=== PATIENT | female | born 1985 | race Caucasian/White ===

== ENCOUNTER 2019-10-08 06:33 | Inpatient (IN) | payer OTHER ==
[~2019-10-08 06:33] MED LIST: cefOXitin 2 GM Vial ONE
[2019-10-08] MEDS ORDERED: Scopolamine 1.5 MG Transdermal Patch TOP SCH (08:00)
[2019-10-08] MEDS ORDERED: Gabapentin 300 MG Cap PO ONE (08:00)
[2019-10-08] MEDS ORDERED: Celecoxib 200 MG Cap PO ONE (08:00)
[2019-10-08] MEDS ORDERED: Acetaminophen 500 MG Tab PO ONE (08:00)
[2019-10-08] MEDS ORDERED: Dextrose 5%-Lactated Ringers 1,000 ML IV SCH (08:15)
[2019-10-08] MEDS ORDERED: Glycopyrrolate 0.2 MG/ML 5 ML MDV ONE (08:26)
[2019-10-08] MEDS ORDERED: Ondansetron 4 MG/2 ML SDV ONE (08:26)
[2019-10-08] MEDS ORDERED: fentaNYL 250 MCG/5 ML SDV ONE ×3 (08:26→10:00)
[2019-10-08] MEDS ORDERED: Dexamethasone 4 MG/ML SDV ONE (08:26)
[2019-10-08] MEDS ORDERED: Propofol 200 MG/20 ML SDV ONE (08:26)
[2019-10-08] MEDS ORDERED: Rocuronium 50 MG/5 ML Vial ONE (08:26)
[2019-10-08] MEDS ORDERED: Neostigmine Methylsulfate 1 MG/ML 5 ML Syringe ONE (08:26)
[2019-10-08] MEDS ORDERED: Succinylcholine 200 MG/10 ML MDV ONE (08:26)
[2019-10-08] MEDS ORDERED: Lactated Ringers 1,000 ML ONE (08:26)
[2019-10-08] MEDS ORDERED: Ketamine 500 MG/5 ML MDV IV SCH (09:00)
[2019-10-08] MEDS ORDERED: Ketamine 50 MG in Sodium Chloride 0.9% 49.5 ML IV SCH (09:00)
[2019-10-08] MEDS ORDERED: cefOXitin 2 GM in Sodium Chloride 0.9% 50 ML IV ONE (09:15)
[2019-10-08] MEDS ORDERED: hydrOXYzine HCL 100 MG/2 ML SDV IM ONE (12:23)
[2019-10-08] MEDS ORDERED: fentaNYL 100 MCG/2 ML SDV IVPUSH ONE (12:31)
[2019-10-08] MEDS ORDERED: Metoclopramide 10 MG/2 ML SDV IV PRN ×2 (13:33→13:43)
[2019-10-08] MEDS ORDERED: Labetalol 20 MG/4 ML Syringe IVPUSH PRN (13:46)
[2019-10-08] MEDS ORDERED: Acetaminophen 500 MG Tab PO PRN (13:46)
[2019-10-08] MEDS ORDERED: Cyclobenzaprine 10 MG Tab PO PRN (13:46)
[2019-10-08] MEDS ORDERED: hydrOXYzine HCL 100 MG/2 ML SDV IM PRN (13:46)
[2019-10-08] MEDS ORDERED: Albuterol/Ipratropium 3.0-0.5 MG/3 ML Neb Soln INH PRN (13:46)
[2019-10-08] MEDS ORDERED: Ondansetron 4 MG/2 ML SDV IVPUSH PRN (13:46)
[2019-10-08] MEDS ORDERED: Calcium Gluconate 10% 1 GM/10 ML SDV IVPUSH PRN (13:46)
[2019-10-08] MEDS ORDERED: Metoclopramide 10 MG/2 ML SDV IVPUSH PRN (13:46)
[2019-10-08] MEDS ORDERED: HYDROmorphone 0.5 MG/0.5 ML Syringe IVPUSH PRN (13:46)
[2019-10-08] MEDS ORDERED: oxyCODONE 5 MG Tab PO PRN (13:46)
[2019-10-08] MEDS ORDERED: HYDROmorphone 1 MG/ML Syringe IV PRN (13:46)
[2019-10-08] MEDS ORDERED: diphenhydrAMINE 50 MG/ML SDV IVPUSH PRN (13:46)
[2019-10-08] MEDS ORDERED: Pantoprazole 40 MG Vial IVPUSH SCH (15:00)
[2019-10-08] MEDS: cefOXitin 2 GM in Sodium Chloride 0.9% 50 ML IV SCH ×2 (15:46→20:07)
[2019-10-08] MEDS: Gabapentin 250 MG/5 ML Solution ML 470 ML Bottle PO SCH ×2 (15:56→20:06)
[2019-10-08] MEDS: Acetaminophen 500 MG Tab PO SCH ×2 (15:57→21:00)
[2019-10-08] MEDS ORDERED: MVI, Adult with Vitamin K 10 ML, Thiamine 200 MG, Chromium/Copper/Mang/Selen/Zn 1 ML in... IV SCH ×4 (16:00)
[2019-10-08] MEDS: Heparin Sodium 5,000 Units/ML Vial SUBCUT SCH (20:06)
[2019-10-08] MEDS ORDERED: Montelukast 5 MG Tab.Chew PO SCH (21:00)
[2019-10-08] MEDS: Dextrose 5%-Lactated Ringers 1,000 ML IV SCH (23:36)
[2019-10-09] MEDS ORDERED: Iopamidol 612 MG/ML 50 ML SDV PO STA (01:12)
[2019-10-09] MEDS: diphenhydrAMINE 50 MG/ML SDV IV ONE ×2 (02:39→03:09)
[2019-10-09] MEDS: methylPREDNISolone Sodium Succinate 125 MG/2 ML SDV IV ONE ×2 (02:40→03:09)
[2019-10-09] MEDS: cefOXitin 2 GM in Sodium Chloride 0.9% 50 ML IV SCH (02:41)
[2019-10-09] MEDS: Dextrose 5%-Lactated Ringers 1,000 ML IV SCH (05:54)
[2019-10-09] MEDS: Acetaminophen 500 MG Tab PO SCH ×3 (05:54→21:08)
[2019-10-09] MEDS ORDERED: Ondansetron 4 MG Tab.DIS PO PRN (06:51)
[2019-10-09] MEDS ORDERED: Dextrose 5%-Lactated Ringers 1,000 ML IV SCH (07:00)
--- NOTE | 2019-10-09 07:42 | PN ---
DATE OF SERVICE: 10/09/2019 SUBJECTIVE: Natalie is postoperative day 1 and her vital signs stable. Temperature max 99.3. Oral intake 1060, urine output was 3080. TISHA put out 95 of a light pink drainage. Tolerating Step One diet well, bariatric and gastric bypass diet well. Upper GI was normal. REMAINDER OF REVIEW OF SYSTEMS: Negative for any pertinent positives or negatives. Reports pain is controlled. OBJECTIVE: GENERAL: Natalie is a pleasant 34-year-old female, alert and orientated. VITAL SIGNS: TPR at 0325; 98.3, 93, 16. Blood pressure 136/78, O2 by pulse oximetry 98% on 2 L of O2 per nasal cannula. HEENT: Negative. NECK: Supple. HEART: Regular rate and rhythm. LUNGS: Clear. ABDOMEN: Dressings dry and intact. Abdominal binder is on. EXTREMITIES: Without peripheral edema. ASSESSMENT: Laparoscopic duodenal switch, repair of paraesophageal diaphragmatic hernia with mesh and liver biopsy for morbid obesity, large paraesophageal diaphragmatic hernia, and hepatomegaly. Date of surgery, 10/08/2019. PLAN: 1. Decrease IV to 80 mL per hour. 2. Step 2 gastric bypass diet with no cereal. 3. Dressing off, may shower. 4. Communication order: 3 med cups per hour, 1 every 20 minutes, record at bedside. Home medications started; 1. Sertraline 150 mg p.o. daily. 2. Singulair 10 mg p.o. at bedtime. 3. Flonase 2 sprays in each nostril once daily. 4. Klonopin 0.5 mg p.o. daily. 5. Zofran ODT 4 mg every 4 hours p.r.n. nausea, vomiting. 6. Abilify 2 mg p.o. daily. We will evaluate p.r.n. an or in a.. Tisha Banks PA-C /[id number]
[2019-10-09] MEDS: Gabapentin 250 MG/5 ML Solution ML 470 ML Bottle PO SCH ×3 (08:32→20:19)
[2019-10-09] MEDS: Sertraline 50 MG Tab PO SCH (08:32)
[2019-10-09] MEDS: Heparin Sodium 5,000 Units/ML Vial SUBCUT SCH ×2 (08:33→20:18)
[2019-10-09] MEDS: SCOPOLAMINE PATCH CHECK TOP SCH (08:33)
[2019-10-09] MEDS: Celecoxib 200 MG Cap PO SCH ×2 (08:33→20:19)
[2019-10-09] MEDS: ClonazePAM 0.5 MG Tab PO SCH (08:38)
[2019-10-09] MEDS: Fluticasone Propionate Nasal Spray 16 GM Bottle NASBOTH SCH (08:38)
[2019-10-09] MEDS ORDERED: Sertraline 50 MG Tab PO SCH (09:00)
[2019-10-09] MEDS ORDERED: ClonazePAM 0.5 MG Tab PO SCH (09:00)
--- NOTE | 2019-10-09 10:34 | CR ---
[facility] HISTORY: Postbariatric surgery FINDINGS: Patient swallowed water-soluble contrast. Upright views of the abdomen show no evidence of extravasation or obstruction. IMPRESSION: Status post bariatric surgery No extravasation or obstruction seen
[2019-10-09] MEDS ORDERED: Montelukast 10 MG Tab PO SCH (21:00)
[2019-10-10] MEDS: Acetaminophen 500 MG Tab PO SCH (05:46)
[2019-10-10] MEDS: Celecoxib 200 MG Cap PO SCH (08:12)
[2019-10-10] MEDS: Sertraline 50 MG Tab PO SCH (08:16)
[2019-10-10] MEDS: ClonazePAM 0.5 MG Tab PO SCH (08:18)
[2019-10-10] MEDS: Gabapentin 250 MG/5 ML Solution ML 470 ML Bottle PO SCH (08:18)
[2019-10-10] MEDS: Heparin Sodium 5,000 Units/ML Vial SUBCUT SCH (08:21)
[2019-10-10] MEDS: Fluticasone Propionate Nasal Spray 16 GM Bottle NASBOTH SCH (08:22)
[2019-10-10] MEDS: SCOPOLAMINE PATCH CHECK TOP SCH (08:23)
[2019-10-10] MEDS ORDERED: Cyanocobalamin (Vitamin B12) 1,000 MCG/ML SDV IM ONE (09:00)
--- NOTE | 2019-10-10 10:01 | DISCH ---
ADMISSION DIAGNOSES: Morbid obesity, BMI 52.3; acid reflux; polycystic ovary syndrome; allergic rhinitis; mood disorder. DISCHARGE DIAGNOSES: Laparoscopic duodenal switch, repair of paraesophageal diaphragmatic hernia with mesh, and liver biopsy for morbid obesity, large paraesophageal diaphragmatic hernia, and hepatomegaly. Date of surgery: 10/08/2019. HISTORY: Natalie is a pleasant 34-year-old female with longstanding history of morbid obesity and increasing comorbidities. After preoperative evaluation and discussion of possible risks and possible complications, she wished to proceed with surgical procedure. HOSPITAL COURSE: Natalie had her surgery on 10/08/2019. She had no operative complications. On postoperative day #1, she was started on step 2 gastric bypass diet with no cereal. IV was decreased. She was started on her home medication. On postoperative day #2, she was able to be discharged to home. Vital signs stable. Oral intake 2880. Urine output 1450. TISHA drain was discontinued. She had 35 mL of a light pink drainage over the past 24 hours. She did receive dietary instruction and vitamin B12 1000 mcg injection. Natalie was able to be discharged to home with no complications. PHYSICAL EXAMINATION: GENERAL: Naatlie is a 34-year-old female. VITAL SIGNS: Height is 5 feet 9 inches, weight is 354 pounds, BMI is 52.3. TPR at 0729, 97.4; 69; 16; blood pressure 135/76. HEENT: Negative. NECK: Supple. HEART: Regular rate and rhythm. LUNGS: Clear. ABDOMEN: Sutures intact. Incision is healing well. 4x4s will be placed over TISHA drain, once that is removed. Abdominal binder has been on. DISPOSITION: Discharged to home. CONDITION: Stable and improving. FOLLOWUP: Appointment with Tisha Banks PA-C, on 10/21/2019 at 9:00 a.m. HOME MEDICATIONS: 1. Tylenol Extra Strength 1000 mg every 8 hours. 2. Celebrex 200 mg b.i.d. #28. 3. Zofran ODT 4 mg every 4 hours p.r.n. nausea #30. 4. She is to resume home medication of: a. Clonazepam 0.5 mg daily. b. Flonase 2 sprays inhalation in each nostril daily. c. Singulair 10 mg oral at bedtime. d. Protonix 40 mg oral daily. e. Sertraline 150 mg oral daily. f. She is to stop taking vitamins and supplements until first postop appointment. DIET: Step 2 gastric bypass diet with no cereal for 1 month until 11/07/2019. ACTIVITY AFTER DISCHARGE: No lifting greater than 10 pounds for 2 weeks. Other activity after discharge: Walk at least 6 times daily inside your house. Driving: Do not drive for 1 week. Shower/bathing: May shower. DISCHARGE INSTRUCTIONS: Notify provider if any fever, increased pain, swelling, redness, drainage, nausea, or vomiting. Wound incision care: Keep site clean and dry. Wear abdominal binder for 2 weeks and then as tolerated. SPECIAL INSTRUCTIONS: Use incentive spirometer 10 times every hour while awake for 1 week.
--- NOTE | 2019-10-14 12:13 | OR ---
DATE OF PROCEDURE: 10/08/2019 SURGEON: Nicholas Pastrana MD PREOPERATIVE DIAGNOSIS: Morbid obesity. POSTOPERATIVE DIAGNOSES: 1. Morbid obesity. 2. Marked hepatomegaly. 3. Large paraesophageal diaphragmatic hernia. OPERATIVE PROCEDURES: Diagnostic laparoscopy with: 1. Laparoscopic duodenal switch (37257). 2. Milton-Cut needle liver biopsy (09744). 3. Repair of paraesophageal diaphragmatic hernia with mesh augmentation (66853). ANESTHESIA: General. TOP STOP ATTACHER: Tisha Banks PA-C INDICATIONS FOR PROCEDURE: This is a 34-year-old presenting with longstanding morbid obesity and increasingly significant comorbidities. After preoperative evaluation and discussion, she wished to proceed with a duodenal switch. Potential risks of the procedure including bleeding, infection, leaks from various GI tract closures, problems with obstruction recurring over time of the GI tract, as well as remote possibility of cardiopulmonary, septic, or hemorrhagic complications leading to were discussed, and the patient wishes to proceed. DETAILS OF PROCEDURE: The patient was taken to the operating room and placed in a supine position. After general endotracheal anesthesia was induced, she was converted to a lithotomy position and the abdomen prepped and draped. At 15 cm inferior and 5 cm left of the xiphoid process, a transverse incision was made and the peritoneal cavity entered under direct vision with an Optiview trocar, inflated to 15 mmHg pressure with CO2. Laparoscope was then reinserted. No underlying trocar insertion site injuries were seen. Following this, bilateral transversus abdominis plane blocks were placed and 5 additional trocars were placed across the upper and mid abdomen. The patient was noted to have marked hepatomegaly with the liver being roughly 2 to 3 times normal size and grossly fatty infiltrated. Milton- Cut needle biopsies were obtained and sent for histologic evaluation and hemostasis at the biopsy site was accomplished with electrocautery. At this point, the ileocecal valve was identified and the small bowel was then traced back 300 cm proximal to that point. This was then mobilized upward to the level of the duodenum. This was fairly tight, but we felt we would be able to do the duodenoileostomy safely but, due to the density of the mesentery, will forego the second of the small bowel anastomosis, leaving that to future procedure after some weight loss has occurred, if necessary. At this point, attention was turned to formation of the sleeve gastrectomy. On elevation of the liver, the patient was noted to have a quite large paraesophageal diaphragmatic hernia with prolapse of perigastric fat and gastric fundus in the plane anterior to the course of the esophagus. This area was initially reduced, and the peritoneum anterior to the EG junction and then between the esophagus and the crura on each side was divided and the esophagus dissected away from the crura on each side and a retroesophageal window completed. The remaining attachments to the distal esophagus were then freed up, allowing a roughly 4 to 5 cm length of intraabdominal esophagus to remain without tension on the EG junction. The posterior crural repair was then accomplished with 0 Ethibond sutures reinforced with PTFE pledgets. Because of the size of the defect, this was augmented with a Phasix ST mesh cut in a horseshoe-type configuration being initially placed over the crural repair and then tacked to the crura on each side with some titanium tacking screws. At this point, the omentum was divided from the mid greater curvature with Harmonic scalpel and this was taken down from the stomach from that point proximally to include the highest and posterior short gastric vessels and the fundus was dissected free from the lower on the left zuleika to avoid any large proximal gastric pouch. The omental dissection then continued to a point roughly 4 cm distal to the duodenum. Some areolar attachments behind the antrum of the stomach were taken down, and at that point some of the attachments superiorly to the duodenum were also taken down, maintaining a plane of dissection directly on the surface of the duodenum, so as to avoid injury to the vasculature in that area. The duodenum was then divided roughly 4 cm distal to the pylorus with a reinforced purple EBONY load. The sleeve gastrectomy was then initially constructed beginning at a point 5 cm proximal to the pylorus using black loads. This was continued underneath the incisura angularis in a leftward direction with the first 2 staple firings with care taken to avoid overtightening of the area underlying the incisura angularis. Anesthesia then placed a 40-Palestinian chest tube orally through the esophagus and into the stomach, where it was positioned along the lesser curvature. Remainder of the sleeve gastrectomy staple line was then accomplished with reinforced black and purple loads, and at that point, the specimen was then delivered off to the side and was removed from the abdomen near the completion of the procedure. At this point, the small bowel was brought up to the duodenum at 300 cm point proximal to the ileocecal valve. Initially, 2 stay sutures between the superior aspect of the duodenum and the ileum and the inferior aspect of the ileum were placed, and then a small opening was made in the inferior aspect of the duodenum, as well as the adjacent ileum. Internal firing using Endo-EBONY sky load was then accomplished to initiate the duodenoileostomy. Using 3 stay sutures to pull up the duodenal and ileal schreiber at the site of the common opening were placed, and these were then pulled upward and the common opening then closed with a EBONY purple load. Upon removal of stapler, good staple lines were noted. The purple load staple line was then reinforced with some interrupted 3-0 Vicryl seromuscular stitch, and that anastomosis was then reinforced with some fibrin sealant, as was the area around the esophagogastric junction. The latter point had some omentum brought up to it as well. Leak test was then accomplished with insufflation of air through a gastrointestinal catheter that had been placed in the esophagogastric chest tube. This initially showed good distention of the stomach but no air flow into the ileum. After this, the gastroscope was employed, and the duodenoileostomy was inspected, and with some minimal effort, the duodenoileostomy opened up, and there was good air flow into the duodenum and adjacent ileum, i.e. via the duodenoileostomy, and no air leaks were noted at that site as well. With no further significant problems being noted, a single Galileo-Rogel drain was taken out through the left lateral trocar site and placed against the esophagogastric junction. The gastric specimen was then delivered from the field, and the trocars were then removed and the peritoneal cavity deflated. Incision was closed with 4-0 Vicryl skin stitch and the drain affixed with 4-0 Vicryl stitch as well. The patient was taken to the recovery room in satisfactory condition. Physician activity assistant, Tisha Banks, played an essential role in assisting in this case, helping to position the patient, retract structures as needed, as well as suturing and cutting sutures when indicated. Her presence improved patient safety and decreased operative time. Nicholas Pastrana MD /[id number]
== END 2019-10-10 09:50 | disposition home or self-care (01) | DRG 621 ==
LOC: JP.SDS 06:33 → JP.MS 06:33 → EDSTATUS 09:15 → JP.2SS 12:20
PROVIDERS: ADMIT Surgery; ATTEND Surgery
PROC: 0D194ZB Bypass Duodenum to Ileum, Percutaneous Endoscopic Approach (ICD-10-PCS; principal; 2019-10-08)
PROC: 0DB64Z3 Excision of Stomach, Percutaneous Endoscopic Approach, Vertical (ICD-10-PCS; 2019-10-08)
PROC: 0FB04ZX Excision of Liver, Percutaneous Endoscopic Approach, Diagnostic (ICD-10-PCS; 2019-10-08)
PROC: 0BQT4ZZ Repair Diaphragm, Percutaneous Endoscopic Approach (ICD-10-PCS; 2019-10-08)
DX: E66.01 Morbid (severe) obesity due to excess calories (principal); Z68.43 Body mass index [BMI] 50.0-59.9, adult; K21.9 Gastro-esophageal reflux disease without esophagitis; E28.2 Polycystic ovarian syndrome; K44.9 Diaphragmatic hernia without obstruction or gangrene; R16.0 Hepatomegaly, not elsewhere classified; F31.9 Bipolar disorder, unspecified; Z79.899 Other long term (current) drug therapy; Z79.890 Hormone replacement therapy; Z79.84 Long term (current) use of oral hypoglycemic drugs
CPT/HCPCS: 36415; 74240; 74240-26; 80053; 81025; 83735; 84100; 85027; 86850; 86900; 86901; 88307; 88313; 93005; 94762; A9270-GY; C1713; C1781; C9113; J0171; J0330; J0694; J1100; J1170; J1200; J1644; J2405; J2704; J2710; J2795; J2930; J3010; J3410; J3411; J3420; J3475; J3490; J7050; J7120; J7121; Q9967

== ENCOUNTER 2019-11-28 06:50 | Day surgery (SDC) | payer OTHER ==
[2019-11-28] MEDS ORDERED: Bupivacaine 0.5%/EPINEPHrine 1:200,000 50 ML MDV ONE (07:01)
[2019-11-28] MEDS ORDERED: Celecoxib 200 MG Cap PO ONE (07:15)
[2019-11-28] MEDS ORDERED: Scopolamine 1.5 MG Transdermal Patch TOP SCH (07:15)
[2019-11-28] MEDS ORDERED: Acetaminophen 500 MG Tab PO ONE (07:15)
[2019-11-28] MEDS ORDERED: Propofol 200 MG/20 ML SDV ONE (07:28)
[2019-11-28] MEDS ORDERED: Glycopyrrolate 0.2 MG/ML 5 ML MDV ONE (07:28)
[2019-11-28] MEDS ORDERED: Ondansetron 4 MG/2 ML SDV ONE (07:28)
[2019-11-28] MEDS ORDERED: Succinylcholine 200 MG/10 ML MDV ONE (07:28)
[2019-11-28] MEDS ORDERED: Neostigmine Methylsulfate 1 MG/ML 5 ML Syringe ONE (07:28)
[2019-11-28] MEDS ORDERED: Dexamethasone 4 MG/ML SDV ONE (07:28)
[2019-11-28] MEDS ORDERED: Rocuronium 50 MG/5 ML Vial ONE (07:28)
[2019-11-28] MEDS ORDERED: fentaNYL 250 MCG/5 ML SDV ONE (07:29)
[2019-11-28] MEDS ORDERED: Dextrose 5%-Lactated Ringers 1,000 ML IV SCH (07:30)
[2019-11-28] MEDS ORDERED: Albuterol/Ipratropium 3.0-0.5 MG/3 ML Neb Soln NEB ONE (08:00)
[2019-11-28] MEDS: cefOXitin 2 GM in Sodium Chloride 0.9% 50 ML IV ONE ×2 (08:30→11:01)
[2019-11-28] MEDS ORDERED: Lidocaine 1% 2 ML ONE (08:35)
[2019-11-28] MEDS ORDERED: Ketamine 500 MG/5 ML MDV IV SCH (08:45)
[2019-11-28] MEDS ORDERED: Ketamine 50 MG in Sodium Chloride 0.9% 49.5 ML IV SCH (08:45)
[2019-11-28] MEDS ORDERED: fentaNYL 100 MCG/2 ML SDV ONE ×2 (09:09→09:55)
[2019-11-28] MEDS ORDERED: Meropenem 500 MG SDV ONE (09:34)
[2019-11-28] MEDS ORDERED: Labetalol 20 MG/4 ML Syringe ONE (09:41)
[2019-11-28] MEDS ORDERED: fentaNYL 100 MCG/2 ML SDV IVPUSH ONE (10:13)
[2019-11-28] MEDS ORDERED: hydrOXYzine HCL 100 MG/2 ML SDV IM ONE (10:13)
[2019-11-28] MEDS: Dextrose 5%-Lactated Ringers 1,000 ML IV SCH ×2 (10:50→18:44)
[2019-11-28] MEDS ORDERED: HYDROmorphone 0.5 MG/0.5 ML Syringe IVPUSH PRN (11:11)
[2019-11-28] MEDS ORDERED: HYDROmorphone 1 MG/ML Syringe IV PRN (11:11)
[2019-11-28] MEDS ORDERED: Ondansetron 4 MG/2 ML SDV IVPUSH PRN (11:11)
[2019-11-28] MEDS ORDERED: Pantoprazole 40 MG Vial IVPUSH SCH (12:00)
[2019-11-28] MEDS: Acetaminophen/HYDROcodone 325-5 MG Tab PO PRN ×4 (12:45→21:49)
[2019-11-28] MEDS: Sertraline 50 MG Tab PO SCH (13:16)
[2019-11-28] MEDS: cefOXitin 2 GM in Sodium Chloride 0.9% 50 ML IV SCH ×2 (14:31→20:01)
[2019-11-28] MEDS: ClonazePAM 0.5 MG Tab PO SCH (20:01)
[2019-11-28] MEDS ORDERED: Montelukast 10 MG Tab PO SCH (21:00)
[2019-11-29] MEDS: cefOXitin 2 GM in Sodium Chloride 0.9% 50 ML IV SCH ×2 (01:30→08:01)
[2019-11-29] MEDS: Acetaminophen/HYDROcodone 325-5 MG Tab PO PRN ×3 (01:32→08:45)
[2019-11-29] MEDS: Dextrose 5%-Lactated Ringers 1,000 ML IV SCH (04:05)
[2019-11-29] MEDS: Sertraline 50 MG Tab PO SCH (08:40)
[2019-11-29] MEDS: ClonazePAM 0.5 MG Tab PO SCH (08:42)
--- NOTE | 2019-11-29 10:42 | DISCH ---
ADMISSION DIAGNOSES: 1. Cholecystitis. 2. Status post duodenal switch. 3. Unspecified surgical malabsorption. 4. B12 deficiency. 5. Vitamin D deficiency. 6. Morbid obesity, BMI of 45.5. 7. Polycystic ovary syndrome. 8. Allergic rhinitis. 9. Mood disorder. DISCHARGE DIAGNOSES: Diagnostic laparoscopy with: 1. Cholecystectomy. 2. Drainage of pericholecystic abscess. POSTOPERATIVE DIAGNOSES: Acute cholecystitis (thick sludge with pericholecystic abscess). Date of surgery: 11/28/2019. Surgeon: Nicholas Pastrana MD. HISTORY: Natalie is a 34-year-old female with persistent vague abdominal pain associated with nausea. After preoperative evaluation and discussion of possible risks and possible complications, she wished to proceed with surgical procedure. HOSPITAL COURSE: Natalie had her surgery on 11/28/2019. She had no operative complications. On postoperative day #1, the packing in the upper trocar site was removed. TISHA drain was removed, and it was draining a clear yellow drainage. Pain was controlled. Vital signs stable. Up ambulating and afebrile. She was able to be discharged to home with no complications. PHYSICAL EXAMINATION: GENERAL: Natalie Mcgill is a pleasant 34-year-old female, height 5 feet 9 inches, weight is 308 pounds, BMI is 45. VITAL SIGNS: TPR at 0722 is 98.6, 56, 18. Blood pressure 107/66. HEENT: Negative. NECK: Supple. HEART: Regular rate and rhythm. LUNGS: Clear. ABDOMEN: Dressing dry and intact. TISHA drain will be removed. Abdominal binder is on. EXTREMITIES: Without peripheral edema. DISPOSITION: Discharged to home. CONDITION: Stable and improving. FOLLOWUP: Followup appointment with Tisha Banks PA-C, on 12/09/2019 at 10:00 a.m. NEW PRESCRIPTIONS: 1. [place] 5/325 mg 1 every 4 hours p.r.n. pain, #42. 2. Senna Plus 2 tabs oral daily, #100. She is to resume her home medications. DIET: Step 3 gastric bypass diet, 65 g of protein and 64 ounces of fluid. ACTIVITY: Walk at least 6 times daily. No lifting greater than 10 pounds for 2 weeks. Driving: Do not drive for 1 week and while on pain medication. Shower/bathing: May shower. DISCHARGE INSTRUCTIONS: Notify provider if any fever, increased pain, nausea, or vomiting. Wound incision care; keep site clean and dry. Wear abdominal binder for 2 weeks and then as tolerated. SPECIAL INSTRUCTION: Use incentive spirometer 10 times every hour while awake.
--- NOTE | 2019-12-05 13:02 | OR ---
DATE OF PROCEDURE: 11/28/2019 SURGEON: Nicholas Pastrana MD PREOPERATIVE DIAGNOSIS: Acute cholecystitis. POSTOPERATIVE DIAGNOSIS: Acute cholecystitis with pericholecystic abscess. OPERATIVE PROCEDURES: Diagnostic laparoscopy with: 1. Cholecystectomy (34899). 2. Drainage of pericholecystic abscess (53721). ANESTHESIA: General. FLATWORK TIER: Tisha Banks PA-C INDICATION FOR PROCEDURE: This is a 34-year-old who is status post a duodenal switch procedure in September presenting with a picture of ongoing cholecystitis. The plan is to proceed with a laparoscopic or if necessary open cholecystectomy. Potential risks of the procedure including bleeding, infection, injury to common bile duct, possible migration of stones in the common bile duct requiring additional procedures for correction were all reviewed, and the patient wishes to proceed. DETAILS OF PROCEDURE: The patient was taken to the operating room, and after general endotracheal anesthesia was induced, the abdomen was prepped and draped. Just to the right of the umbilicus, a transverse incision was made and the peritoneal cavity entered under direct vision with an Optiview trocar and inflated to 15 mmHg pressure with CO2. Laparoscope was reinserted. No underlying trocar insertion site injuries were seen. Bilateral transversus abdominis plane blocks were then placed, following which a 12 mm epigastric trocar and 5 mm separate subcostal trocar were placed. The omentum was adherent to the gallbladder, and this was peeled back. The patient was noted to have fairly thick purulent material behind the gallbladder. This was evacuated and sent for cultures. This did show some gram-positive cocci consistent with being an abscess. The gallbladder itself was densely distended, and in order to facilitate its dissection, it was then opened and a large amount of thick oily bilious material was removed. This contained some sludge-like material within it. The gallbladder itself was extremely inflamed. This was consistent with an acute cholecystitis and had some patchy areas of necrosis on its surface. The dissection then continued down around the gallbladder neck/cystic duct junction. Once that area, as well as the adjacent cystic artery, were both well delineated, both were divided. The artery was controlled with some clips and the junction of the gallbladder neck and cystic duct was divided with a EBONY sky load, as this was quite friable and unlikely to hold clips well. The gallbladder was then delivered through the epigastric trocar site. The area was then irrigated with a meropenem-containing saline solution. A Galileo-Rogel drain was taken out through the right subcostal trocar site and the trocars were then sequentially removed. The fascia at 12 mm site was closed with 0 Vicryl stitch and the skin with 4-0 Vicryl skin stitch other than the epigastric site, where the gallbladder was pulled through, was packed open with iodoform gauze. The patient was taken to the recovery room in satisfactory condition. Physician library media assistant, Tisha Banks, played an essential role in assisting in this case, helping to position the patient, retract structures as needed, as well as suturing and cutting sutures when indicated. Her presence improved patient safety and decreased the operative time. Nicholas Pastrana MD /[id number]
== END 2019-11-29 10:46 | disposition home or self-care (01) ==
LOC: JP.SDS 06:50 → JP.MS 09:50 → JP.SDS 11-29 10:46
PROVIDERS: ATTEND Surgery
DX: K81.2 Acute cholecystitis with chronic cholecystitis (principal); K91.2 Postsurgical malabsorption, not elsewhere classified; E53.8 Deficiency of other specified B group vitamins; E55.9 Vitamin D deficiency, unspecified; E66.01 Morbid (severe) obesity due to excess calories; E28.2 Polycystic ovarian syndrome; J30.9 Allergic rhinitis, unspecified; F39 Unspecified mood [affective] disorder; Z68.42 Body mass index [BMI] 45.0-49.9, adult; Z98.890 Other specified postprocedural states; Z79.899 Other long term (current) drug therapy
CPT/HCPCS: 36415; 47562; 80053; 82247; 82728; 84075; 84100; 85027; 87070; 87075; 87205; 88304; 94640; A9270; C9113; J0171; J0330; J0694; J1100; J2001; J2185; J2405; J2704; J2710; J2795; J3010; J3410; J3490; J7050; J7121; J7620-GY